=== PATIENT | male | born 1955 | race Caucasian/White ===

== ENCOUNTER 2019-08-03 10:02 | Inpatient (IN) ==
[2019-08-03] MEDS ORDERED: TYLENOL PO PRN (10:42)
[2019-08-03] MEDS ORDERED: ZOFRAN IV PRN (10:42)
[2019-08-03] MEDS: HUMULIN R SUBQ SCH ×3 (11:42→21:14)
[2019-08-03] MEDS ORDERED: COLACE PO PRN (11:45)
[2019-08-03] MEDS ORDERED: ANUSOL-HC CREAM TOP PRN (11:45)
[2019-08-03] MEDS ORDERED: ANUSOL-HC SUPP PR PRN (11:45)
[2019-08-03] MEDS ORDERED: ULTRAM ER PO PRN (11:48)
--- NOTE | 2019-08-03 12:18 | EKG Report ---
Test Performed on : 08/03/2019 11:53:29 AM Test Reason : admit elizabeth grimm Blood Pressure : / mmHG Vent. Rate : 065 BPM Atrial Rate : 065 BPM P-R Int : 380 ms QRS Dur : 096 ms QT Int : 414 ms P-R-T Axes : 071 086 060 degrees QTc Int : 430 ms Sinus rhythm. with 1st degree AV block. Otherwise normal ECG No previous ECGs available Unconfirmed Result
[2019-08-03 12:36] LABS: BASO# 0.12 X1000 (0.0-0.2); BASO% 1.4 % (0.0-0.8); EOS# 0.62 X1000 (0.0-0.7); EOS% 7.3 % (0.0-10.0); HEMOGLOBIN 6.8 g/dL (14.0-18.0); IMM GRAN# 0.02 X1000 (0.0-0.04); IMM GRAN% 0.2 % (0.0-0.5); LYMPH% 32.9 % (20.5-51.1); MCH 24.2 PG (27-31); MCHC 29.6 g/dL (33-37); MCV 81.9 FL (81-99); MONO# 0.97 X1000 (0.11-0.59); MONO% 11.4 % (1.7-9.3); MPV 9.9 FL (7.4-10.4); NEUT# 3.99 X1000 (1.4-6.5); NEUT% 46.8 % (42.2-75.2); PLT 262 X1000 (130-400); RBC 2.81 XMIL (4.7-6.1); RDW 15.6 % (11.5-14.5); WBC 8.52 X1000 (4.8-10.8)
[2019-08-03 12:42] LABS: INR 1.07; PROTIME 14.1 Seconds (11.0-16.0); PTT 28.3 Seconds (22.3-41.8)
[2019-08-03 12:53] LABS: AGAP 13; ALB/GLOB RATIO 0.8; ALBUMIN 3.7 g/dL (3.5-5.0); ALKALINE PHOSPHATASE 95 U/L (32-122); BUN 11 mg/dL (8-22); CALCIUM 9.1 mg/dL (8.8-10.2); CHLORIDE 97 mmol/L (98-107); COSMO 267; ESTIMATED GFR > 60; GLUCOSE 120 mg/dL (70-104); GOT 31 U/L (10-34); GPT 14 U/L (10-44); HEMOGLOBIN A1C 7.8 % (4.8-6.0); MAGNESIUM 1.9 mg/dL (1.5-2.7); POTASSIUM 4.6 mmol/L (3.5-5.1); SODIUM 133 mmol/L (136-145); TCO2 23 mmol/L (25-35); TOTAL BILIRUBIN 0.56 mg/dL (0.20-1.00); TOTAL PROTEIN 8.5 g/dL (6.3-8.3)
[2019-08-03 12:54] LABS: IRON SATURATION 7 %; TIBC 407 ug/dL; TOTAL IRON 30 ug/dL (53-167); UNBOUND IRON 377 ug/dL (112-346)
[2019-08-03] MEDS ORDERED: NEURONTIN PO SCH (13:00)
[2019-08-03 13:26] LABS: FREE T4 1.03 ng/dL (0.93-1.70)
--- NOTE | 2019-08-03 13:27 | HISTORY AND PHYSICAL ---
HISTORY OF PRESENT ILLNESS: This is a 63-year-old who is followed by Dr. Amelia Magaña. I guess he is followed by Dr. Leo Willett as well. Dr. Willett, I think called, and he had significant anemia, symptomatic. States for the last week, he has been short of breath and tired. He works at a machine shop, and had increased dyspnea with exertion. He has noticed a little more swelling in his feet. He has not noticed significant change in abdominal pain or dyspepsia, and no real black, tarry stools, although he says they are dark brown in color. He is taking Celebrex, but no aspirin. He is not on any blood thinner. PAST MEDICAL HISTORY: 1. History of constipation. 2. Gastroesophageal reflux disease. 3. Peripheral neuropathy. 4. History of hemorrhoids. 5. Diabetes mellitus type 2. 6. Hypertension. 7. Chronic pain syndrome. 8. Hyperlipidemia. 9. Osteoarthritis. 10. In February apparently, he was admitted in [place], and they found ulcers, again symptomatic anemia, and I think for a time, he was on proton pump inhibitors. I think he has continued to take some proton pump inhibitors, but he is still on Celebrex as well. 11. Alcohol abuse in the past. 12. Cirrhosis of the liver, but they thought it was more fatty liver changes. Apparently, he had a liver biopsy done at [place] as well that may be in February of this year. 13. He has chronic pain syndrome. He is seen at [facility], gets some pain medicine. I think that is mainly in his back and hips. PAST SURGICAL HISTORY: 1. Left hip replacement. 2. Both shoulders have had surgery, I think that was for rotator cuff. 3. He had 2 cervical disks that I think were fused. SOCIAL HISTORY: He lives with his . 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 He has stopped drinking 12 year. He smokes about 1-1/2 packs a day. He stopped smoking, I believe in 02/2019. FAMILY HISTORY: Diabetes, alcoholism, emphysema. ALLERGIES: Penicillin causes a rash. REVIEW OF SYSTEMS: General: No weight gain or loss. No fever or chills. HEENT: Unremarkable. Respiratory: No increased work of breathing or dyspnea. Cardiovascular: No chest pain or tachy palpitation, but he has had increased dyspnea on exertion as above for the last week. He has noticed increased pedal edema at his ankles. GI/: He does have some epigastric discomfort when he presses on it. He does not notice any pain with meals or after meals. He has not had any hematemesis or melena. Musculoskeletal/Neurologic: No new focal complaints, just general weakness. Endocrinologic/Hematologic: No significant history. PHYSICAL EXAMINATION: GENERAL: Awake and alert, oriented x3. VITAL SIGNS: Temp is 98.9 degrees, pulse 60, respirations 18, blood pressure 156/61. HEENT: Pupils are equal and round. Conjunctiva is pale with pallor. Gingiva with pallor. CVP is less than 6 cm from the right atrium. ABDOMEN: Nontender, nondistended. No organomegaly. No splenomegaly or hepatomegaly. EXTREMITIES: His carotid, radial, and femoral pulses are 2+ and symmetrical. Good capillary refill in his toes and fingertips. SKIN: Warm and dry. LABORATORY DATA: White count was 8520, hematocrit 23, hemoglobin 6.8, platelet count 262,000. ProTime is 14.1, PTT is 28. ASSESSMENT AND PLAN: 1. Suspect gastric ulcer, possible gastritis. Apparently, he has had an upper esophagogastroduodenoscopy. I am not aware if they found esophageal varices. He does not seem to remember. His does not seem to think that they did. We will give him 2 units of packed red blood cells. We will hold the Celebrex, put him on high-dose proton pump inhibitor, and ask Gastroenterology to see. I am guessing we will have to look at his upper GI. He is started on Protonix 40 mg intravenous every 12 hours. 2. Apparently, he has been told that he had some mild cirrhosis, and he seemed to think it was fatty liver. He does have a history of alcohol in the past. We will check his liver enzymes. I am assuming he had a hepatitis profile done. 3. History of constipation. Will give him Colace 100 mg by mouth twice daily. 4. Diabetes mellitus type 2. Will check pattern sugars, put him on a sliding scale. 5. Chronic pain syndrome. Aware. I think that is his neck and lower back and shoulders. At home, he takes gabapentin 200 mg by mouth three times daily. I think we can continue that. He takes oxycodone 7.5. I think he takes that at bedtime. 6. History of hypercholesterolemia. Continue his Pravachol. 7. History of gastroesophageal reflux. Continue proton pump inhibitors. 8. History of hemorrhoids, for which he is using some topical hydrocortisone and lidocaine combination. We will admit to the hospital, and ask Dr. Cordova of Gastroenterology to help us. cc: Ismael Sheffield MD MTDD
[2019-08-03 13:51] LABS: URINE SOURCE CLEAN CATCH
--- NOTE | 2019-08-03 13:51 | Diag Imaging Result Doc PS360 ---
EXAM: CT ABDOMEN/PELVIS W/WO CONTRAS INDICATION: gib; abd pain TECHNIQUE: This exam was performed using automated exposure control, adjustment of mA or kV according to patient size, and/or use of iterative reconstruction technique. COMPARISON: None. FINDINGS: There is trace pleural fluid at the right lung base. There is mild interstitial thickening at both lung bases likely representing mild fibrotic change, perhaps with a component of mild edema. The contour of the liver is somewhat nodular, which is suggestive of cirrhosis. The gallbladder, spleen, pancreas, and adrenal glands are unremarkable. There is a 3 cm cyst at the lower pole of the left kidney, perhaps containing proteinaceous debris. The left renal contour is somewhat lobulated suggesting persistent lobulations or renal cortical scarring. There is no hydronephrosis. The urinary bladder is grossly unremarkable. There is a right inguinal hernia that contains only fat. The appendix is normal. There is fairly advanced descending and sigmoid colonic diverticulosis but no evidence of diverticulitis. The rectosigmoid wall appears mildly thickened focally. This may be due to underdistention. Although unlikely, focal colitis/proctitis or an underlying lesion cannot completely be excluded. There is no evidence of bowel obstruction. The remainder of the GI tract is essentially unremarkable. There is trace fluid along the paracolic gutters bilaterally but mainly on the left. There are small shotty nonspecific periaortic lymph nodes. There is patchy aortoiliac atherosclerotic calcification. There is no evidence of aortic aneurysm. There has been a prior left hip arthroplasty. There are degenerative changes throughout the lumbar spine, most prominent at L5-S1. IMPRESSION: 1.Nodular liver contour suggesting cirrhosis. 2.Fairly advanced diverticulosis coli but no evidence of diverticulitis. 3.Mild rectosigmoid wall thickening that may be due to underdistention. Please see above discussion. 4.Trace nonspecific fluid tracking along the paracolic gutters. 5.Trace right pleural effusion. 6.Mild interstitial thickening at the lung bases suggesting fibrosis +/- edema. 7.Other incidental/nonacute findings detailed above. Electronically signed by Francisco Gresham 08/03/2019 1:48 PM
[2019-08-03 13:54] LABS: BILIRUBIN URINE NEGATIVE (NEGATIVE); BLOOD URINE NEGATIVE (NEGATIVE); COLOR STRAW; GLUCOSE URINE NEGATIVE (NEGATIVE); KETONE URINE NEGATIVE (NEGATIVE); LEUKOCYTES URINE NEGATIVE (NEGATIVE); NITRITE URINE NEGATIVE (NEGATIVE); PH URINE 6.5; PROTEIN URINE NEGATIVE (NEGATIVE); SP GRAVITY URINE 1.006; TURBIDITY URINE CLEAR (CLEAR); UROBILINOGEN URINE NORMAL (NORMAL)
[2019-08-03 13:55] LABS: UR EPITHELIAL CELLS <10 /HPF (<10); URINE BACTERIA NEGATIVE /HPF; URINE RBC <10 /HPF (<10); URINE WBC <10 /HPF (<10)
[2019-08-03] MEDS: PROTONIX 80 MG in NS 80 ML IV SCH ×2 (14:06→23:16)
[2019-08-03] MEDS: NS 1,000 ML IV SCH (14:06)
[2019-08-03 14:10] LABS: UR AMPHETAMINES QUAL NONE DETECTED (NONE DETECT); UR BARBITUATES QUAL NONE DETECTED (NONE DETECT); UR BENZODIAZEPIN QUAL NONE DETECTED (NONE DETECT); UR CANNABINOIDS QUAL NONE DETECTED (NONE DETECT); UR COCAINE QUAL NONE DETECTED (NONE DETECT); UR METHADONE QUAL NONE DETECTED (NONE DETECT); UR OPIATES QUAL NONE DETECTED (NONE DETECT); UR OXYCODONE QUAL PRESUMPTIVE POSITIVE (NONE DETECT); UR PCP QUAL NONE DETECTED (NONE DETECT)
[2019-08-03] MEDS: CARAFATE LIQUID PO SCH ×2 (14:28→21:00)
--- NOTE | 2019-08-03 16:21 | Diag Imaging Result Doc PS360 ---
CHEST-PORTABLE - 08/03/2019 INDICATION: r/o pna COMPARISON: None FINDINGS: There is mild cardiomegaly. Pulmonary vascularity is top normal. No infiltrates or edema. No pneumothorax or pleural effusion. IMPRESSION: Mild cardiomegaly. Electronically signed by Rafa Dye 08/03/2019 4:19 PM
[2019-08-03 19:37] LABS: HEMATOCRIT 23.3 % (42.0-52.0); HEMOGLOBIN 7.1 g/dL (14.0-18.0)
--- NOTE | 2019-08-03 19:42 | GASTROENTEROLOGY CONSULTATION ---
DATE: 08/03/2019 REASON FOR CONSULT: GI bleed and anemia. HISTORY OF PRESENT ILLNESS: Mr. Singh 63-year-old male with history of type 2 diabetes, hypertension, osteoarthritis, GERD, peripheral neuropathy and history of constipation. In February he had been to [facility], where they did a scope and found out that he had ulcers as well as a mass on his liver. Liver biopsy was performed in April and it revealed that he had cirrhosis stage 1. He had been to his doctor for a checkup, he started having shortness of breath, and his feet were swollen up. He was sent to [facility] by his PCP. He has denied any nausea, vomiting but he mentioned that his stools were black and tarry. Patient takes patient takes Nexium for his GERD. For his chronic pain he is on Celecoxib. PAST MEDICAL HISTORY: Constipation, GERD, peripheral neuropathy, history of hemorrhoids, diabetes type 2, hypertension, hyperlipidemia and osteoarthritis, alcohol abuse in the past, tobacco abuse in the past. PAST SURGICAL HISTORY: Left hip replacement, both shoulder surgery and 2 cervical disk fusion. SOCIAL HISTORY: He lives with his , 2 sons, he currently works at [employer]. He used to smoke and he used to drink. Currently he is given up. FAMILY HISTORY: Of no significant GI malignancies. ALLERGIES: He is allergic to penicillin. HOME MEDICATIONS: Tramadol, Celecoxib, Gabapentin, Metformin, Pravastatin, Oxycodone, Hydrocortisone acetate, suppositories, Nexium, Colace, Keflex and Losartan. REVIEW OF SYSTEMS: As per HPI otherwise 12 point review of systems is negative . Temperature 98.9 degrees, pulse 61, respirations 18, blood pressure 156/61, oxygen saturation 100% on room air, patient's weight is 215 pounds, BMI is 30.9 kg per meter square.General: He is alert, oriented x3, good historian and no acute distress. HEENT: Pale conjunctivae, no icterus. PERRL. Neck: Supple. Lungs: Clear to auscultation in the anterior mcbride. Cardiovascular: Regular rate and rhythm. Abdomen: Soft, obese, nontender. Active bowel sounds heard in all 4 quadrants. Extremities: No clubbing, no cyanosis, generalized edema noted bilaterally. Pedal pulses 2+ present. Neurologic: Alert, oriented x3 nonfocal. Cranial nerves 2- 12 grossly intact. LAB: WBC 8.2, RBC 2.81, hemoglobin 6.8, hematocrit 23.0, platelet count 266,000. Sodium 133, potassium 4.6, chloride 97, carbon dioxide 23, anion gap 13, BUN 11, creatinine 1.0, glucose 120, calcium 9.1, magnesium 1.9, iron is 30, TIBC 407, AST 31, ALT 14, total bilirubin 0.56, alkaline phosphate 91. Urinalysis was negative. Toxicology showed urine oxycodone presumptive positive. Abdomen with a CT and pelvis showed nodular liver contour suggesting cirrhosis, diverticulosis coli but no evidence of diverticulitis, mild rectosigmoid wall thickening, trace nonspecific fluid tracking along the paracolic gutters, trace right pleural effusion seen. Mild interstitial thickening at the lung bases other incidents nonacute. IMPRESSION AND PLAN: 1. Upper gastrointestinal bleed. 2. Anemia. 3. Diabetes type 2. 4. Constipation. 5. Gastroesophageal reflux disease . 6. Hemorrhoids. 7. Diverticulosis PLAN: We will do an EGD with enteroscopy tomorrow. Patient is receiving Carafate and Protonix IV @ 10 mls/hr and IV fluids NS @ 50 ml/h. He is bowel regimen Colace and miralax. His H & H is 6.8 and 23.0, he will receive 2 units of blood per PCP. We will continue to monitor patient's CBCs and BMPs and follow the plan of care per PCP. Further plan of care will be based on the EGD findings. This plan was discussed with Dr. Cordova. Thank you for your consult. Please call us for any further questions or concerns. Dictated by GREGG Ambriz for Jeyson Cordova MD Physician Attestation I have seen and examined the patient. I have discussed and reviewed the the note by Gabby ESCOBEDO and agree with findings and plan as documented. In brief, Mr. Héctor Singh is a 63 year old man with probable TORRES/JOANIE, h/o PUD, and OA on Celebrex who presents with acute blood loss anemia with melena. He is on PPI IV BID. Stop carafate. Recommend clear liquid diet. Trending H/H. Transfuse prn for goal hgb 7-8. NPO after MN for diagnostic EGD tomorrow. Please call with questions. MTDD
[2019-08-03] MEDS: PRAVACHOL PO SCH (21:02)
[2019-08-03] MEDS: NEURONTIN PO SCH (21:03)
[2019-08-03] MEDS: PERCOCET-5 PO SCH (21:11)
[2019-08-04] MEDS: PATIENT'S OWN MED TOP SCH ×3 (00:53→20:37)
[2019-08-04 01:42] LABS: HEMATOCRIT 25.4 % (42.0-52.0)
[2019-08-04] MEDS: HUMULIN R SUBQ SCH ×4 (06:04→21:12)
[2019-08-04 06:24] LABS: BASO# 0.07 X1000 (0.0-0.2); BASO% 1.1 % (0.0-0.8); EOS# 0.38 X1000 (0.0-0.7); EOS% 6.2 % (0.0-10.0); HEMATOCRIT 26.5 % (42.0-52.0); HEMOGLOBIN 8.1 g/dL (14.0-18.0); LYMPH# 2.25 X1000 (1.2-3.4); LYMPH% 36.5 % (20.5-51.1); MCH 24.8 PG (27-31); MCHC 30.6 g/dL (33-37); MONO# 0.89 X1000 (0.11-0.59); MONO% 14.4 % (1.7-9.3); MPV 9.4 FL (7.4-10.4); NEUT# 2.58 X1000 (1.4-6.5); NEUT% 41.8 % (42.2-75.2); PLT 210 X1000 (130-400); RBC 3.27 XMIL (4.7-6.1); RDW 15.3 % (11.5-14.5); WBC 6.17 X1000 (4.8-10.8)
[2019-08-04 06:38] LABS: AGAP 5; ALB/GLOB RATIO 0.8; ALBUMIN 3.4 g/dL (3.5-5.0); ALKALINE PHOSPHATASE 87 U/L (32-122); BUN 8 mg/dL (8-22); CALCIUM 9.4 mg/dL (8.8-10.2); CHLORIDE 100 mmol/L (98-107); COSMO 267; CREATININE 1.1 mg/dL (0.7-1.2); ESTIMATED GFR > 60; GLUCOSE 136 mg/dL (70-104); GOT 27 U/L (10-34); GPT 12 U/L (10-44); MAGNESIUM 1.8 mg/dL (1.5-2.7); POTASSIUM 4.4 mmol/L (3.5-5.1); SODIUM 133 mmol/L (136-145); TCO2 28 mmol/L (25-35); TOTAL BILIRUBIN 0.83 mg/dL (0.20-1.00); TOTAL PROTEIN 7.6 g/dL (6.3-8.3)
[2019-08-04] MEDS ORDERED: SODIUM CHLORIDE 0.9% 10 ML ONE (07:04)
[2019-08-04] MEDS: NS 1,000 ML IV SCH (08:46)
[2019-08-04] MEDS: PROTONIX 80 MG in NS 80 ML IV SCH (08:46)
[2019-08-04] MEDS ORDERED: DIPRIVAN 1% ONE (11:07)
[2019-08-04] MEDS ORDERED: XYLOCAINE-MPF 2% ONE (11:07)
--- NOTE | 2019-08-04 11:35 | ENDOSCOPY OPERATIVE NOTE ---
[facility] ENDOSCOPY OPERATIVE NOTE , PATIENT: Héctor Singh ADMISSION DATE: 08/04/2019 [facility]#: [id number] : 1955 [id number] EGD WITH PUSH ENTEROSCOPY PROCEDURE REPORT PROCEDURE DATE: 08/04/2019 SURGEON: Jeyson Cordova MD STATUS: inpatient MORTGAGE BANKER: PREOPERATIVE DIAGNOSIS: The patient is a 63 yr old male here for an EGD due to melena and anemia sec ondary to chronic blood loss. PROCEDURE PERFORMED: EGD with push enteroscopy, diagnostic MEDICATIONS: Per Anesthesia TOPICAL ANESTHETIC: none CONSENT: The patient understands the risks and benefits of the procedure and understands that these r isks include, but are not limited to: sedation, allergic reaction, infection, perforation and/or bleeding. Alternative means of evaluation and treatment include, among others: physical exam, x-rays, and/or surgical intervention. The patient elects to proceed with this endoscopic procedure. HISORY AND PHYSICAL: 08/04/2019 DESCRIPTION OF PROCEDURE: During intra-op preparation period all mechanical and medical equipment was checked for proper function. Hand hygiene and appropriate measures for infection prevention was taken. After the risks, benefits and alternatives of the procedure were thoroughly explained, Informed consent was verified, confirmed and timeout was successfully executed by the treatment team. The patient was anesthetized with topical anesthesia and the CU85-[id number] ([id number]) endoscope was introduced through the mouth and advanced to the 120cm from incisors. Retrof lexion was performed in the stomach and revealed a hiatal hernia. The gastroscope was then slowly withdrawn and removed. ESOPHAGUS: Two columns of grade I-II esophageal varices found in the distal esophagus. No red susan s igns or stigmata of recent bleeding. STOMACH: The mucosa of the stomach appeared normal. No gastric varices DUODENUM: The duodenum was normal. JEJUNUM / ILEUM: Normal jejunum. SPECIMENS REMOVED: No ADVERSE EVENTS: There were no complications. POSTOPERATIVE DIAGNOSIS: 1. Two columns of grade I-II esophageal varices found in the distal eso phagus. No red susan signs or stigmata of recent bleeding 2. The mucosa of the stomach appeared normal 3. The duodenum was normal 4. Normal jejunum 5. Small hiatal hernia RECOMMENDATIONS: Clear liquid diet Prep with 4L of golytely for diagnostic colonoscopy tomorrow Patient will need to be started on nadolol 20mg PO once daily upon discharge for primary prophylaxis of esophageal varices NPO after MN for diagnostic colonoscopy with Dr. Burton REPEAT EXAM: Jeyson Cordova MD eSigned: Jeyson Cordova MD 08/04/2019 11:34 AM cc: PATIENT NAME: Héctor Singh MR#: [id number]
[2019-08-04] MEDS ORDERED: GOLYTELY PO ONE ×2 (11:53→18:00)
[2019-08-04] MEDS: COZAAR PO SCH (12:09)
[2019-08-04] MEDS: NEURONTIN PO SCH ×2 (12:09→18:03)
[2019-08-04] MEDS: MIRALAX PO SCH (12:10)
[2019-08-04] MEDS: PROTONIX IV SCH (12:11)
[2019-08-04 12:40] LABS: HEMATOCRIT 26.9 % (42.0-52.0); HEMOGLOBIN 8.5 g/dL (14.0-18.0)
--- NOTE | 2019-08-04 12:40 | PROGRESS NOTE ---
DATE: 08/04/2019 SUBJECTIVE: Mr. Singh is feeling better. He was a little upset that he was told he had cirrhosis of the liver and I plan on doing a colonoscopy tomorrow. He has not had any sign of bleeding or red blood from the rectum or dark black stools. OBJECTIVE: Vital signs: Temperature 98.1 degrees, pulse 74, respirations 16, blood pressure 158/60. HEENT: Pupils are equal round. Lungs: Clear in all lung mcbride. Cardiovascular: Regular rate without murmur or S3. Abdomen: Soft. Skin: Warm and dry. Urine output is 3300 mL. DIAGNOSTIC DATA: 1. EGD revealed 2 columns of grade 1 to 2 esophageal varices found in the distal esophagus. No red susan signs or stigmata of recent bleeding. Mucosa of the stomach appeared normal. Duodenum was normal. Normal jejunum. Small hiatal hernia, so started on nadolol 20 mg p.o. once a day and it looks like he has fatty liver changes as well. Encourage weight reduction. Of course, he has been off alcohol I think since February of this year and continue to encourage abstinence from alcohol. 2. Anemia, blood loss anemia. Received 2 units packed red blood cells. We have him on some iron. 3. Diabetes mellitus type 2. Sugars are controlled. 4. Constipation. 5. History of hemorrhoids. 6. Diverticulosis. 7. Chronic pain syndrome for which he is on oxycodone. REVIEW OF ORDERS: The patient getting Neurontin for neuropathy and he is on Protonix 40 mg IV q.12. He has MiraLAX 17 g a day and we are going to prep him for a colonoscopy tomorrow. cc: Ismael Sheffield MD
[2019-08-04 18:39] LABS: HEMATOCRIT 25.2 % (42.0-52.0); HEMOGLOBIN 7.7 g/dL (14.0-18.0)
[2019-08-04] MEDS: PRAVACHOL PO SCH (20:36)
[2019-08-04] MEDS: PERCOCET-5 PO SCH (20:36)
[2019-08-05] MEDS: PROTONIX IV SCH ×3 (00:08→23:52)
[2019-08-05] MEDS: NEURONTIN PO SCH ×4 (00:08→23:53)
[2019-08-05 00:51] LABS: HEMATOCRIT 27.5 % (42.0-52.0); HEMOGLOBIN 8.5 g/dL (14.0-18.0)
[2019-08-05 06:14] LABS: BASO# 0.04 X1000 (0.0-0.2); BASO% 0.7 % (0.0-0.8); EOS# 0.49 X1000 (0.0-0.7); EOS% 8.1 % (0.0-10.0); HEMATOCRIT 24.5 % (42.0-52.0); HEMOGLOBIN 7.7 g/dL (14.0-18.0); LYMPH# 2.38 X1000 (1.2-3.4); LYMPH% 39.2 % (20.5-51.1); MCH 25.4 PG (27-31); MCHC 31.4 g/dL (33-37); MCV 80.9 FL (81-99); MONO# 0.87 X1000 (0.11-0.59); MONO% 14.3 % (1.7-9.3); MPV 9.4 FL (7.4-10.4); NEUT# 2.29 X1000 (1.4-6.5); NEUT% 37.7 % (42.2-75.2); PLT 204 X1000 (130-400); RBC 3.03 XMIL (4.7-6.1); RDW 15.7 % (11.5-14.5); WBC 6.07 X1000 (4.8-10.8)
[2019-08-05] MEDS: HUMULIN R SUBQ SCH ×4 (06:17→20:45)
[2019-08-05 06:25] LABS: AGAP 14; ALB/GLOB RATIO 0.8; ALBUMIN 3.1 g/dL (3.5-5.0); ALKALINE PHOSPHATASE 80 U/L (32-122); BUN 6 mg/dL (8-22); CALCIUM 8.4 mg/dL (8.8-10.2); CHLORIDE 99 mmol/L (98-107); COSMO 269; ESTIMATED GFR > 60; GLUCOSE 123 mg/dL (70-104); GOT 30 U/L (10-34); GPT 12 U/L (10-44); MAGNESIUM 1.5 mg/dL (1.5-2.7); POTASSIUM 3.9 mmol/L (3.5-5.1); SODIUM 135 mmol/L (136-145); TCO2 22 mmol/L (25-35); TOTAL BILIRUBIN 0.49 mg/dL (0.20-1.00); TOTAL PROTEIN 7.1 g/dL (6.3-8.3)
[2019-08-05] MEDS: NS 1,000 ML IV SCH (06:28)
[2019-08-05] MEDS ORDERED: SODIUM CHLORIDE 0.9% 10 ML ONE ×2 (07:22→10:47)
[2019-08-05] MEDS ORDERED: DIPRIVAN 1% ONE (09:03)
[2019-08-05] MEDS ORDERED: FENTANYL ONE (09:03)
[2019-08-05] MEDS ORDERED: XYLOCAINE-MPF 2% ONE (09:03)
--- NOTE | 2019-08-05 10:02 | ENDOSCOPY OPERATIVE NOTE ---
[facility] ENDOSCOPY OPERATIVE NOTE , PATIENT: Héctor Singh ADM DATE: MR #: [id number] : 1955 COLONOSCOPY PROCEDURE REPORT PROCEDURE DATE: 08/05/2019 SURGEON: Dawit Burton MD STATUS: inpatient CAKE WASHER: Humberto Hernandez and Salma Delaney PREOPERATIVE DIAGNOSIS: The patient is a 63 yr old male here for a colonoscopy due to Anemia, Alcohl ic liver cirrhosis quit in 7-[address] Ely at [facility], EGD showed Esoohageal Varices Grade I-II per Dr crews. PROCEDURE PERFORMED: Colonoscopy, diagnostic MEDICATIONS: Per Anesthesia PREP TYPE: GoLytely
[2019-08-05] MEDS: MIRALAX PO SCH (10:27)
[2019-08-05] MEDS: PATIENT'S OWN MED TOP SCH ×2 (10:27→20:51)
[2019-08-05] MEDS: COZAAR PO SCH (11:53)
[2019-08-05] MEDS ORDERED: ANUSOL-HC CREAM TOP PRN (13:51)
--- NOTE | 2019-08-05 17:02 | PROGRESS NOTE ---
DATE: 08/05/2019 SUBJECTIVE: Mr. Singh had his colonoscopy today. He feels a little better today. OBJECTIVE: Vital signs: Temp 98.6 degrees, pulse 72, respirations 16, blood pressure 151/71. Lungs: Clear in all lung mcbride. Cardiovascular: Regular rhythm and rate without murmur or S3. CVP less than 6 cm. No pedal edema. : He has had good urine output. ASSESSMENT AND PLAN: Colonoscopy. There were no complications. Moderate nonbleeding diverticulosis was noted in the sigmoid colon, descending colon, transverse colon, hepatic flexure. He had medium-sized grade 2 hemorrhoids, 2 descending colon polyps, and no bleeding, and no AV malformations noted. His EGD revealed 2 columns of grade 1-2 esophageal varices found in the distal esophagus. No red Chandan signs or stigmata of recent bleeding. Mucosa of the stomach appeared normal. Duodenum was normal. Normal jejunum. A small hiatal hernia. I guess they suspect the bleeding may have been coming from the diverticulum. His hematocrit today was 24, hemoglobin 7.7, MCV was 80. Continue current proton pump inhibitors. He will need to follow up in 90 days and see if we get the polyps removed. In looking over his orders, I do not see any change. Hopefully he can go home tomorrow and will need to put him on iron tablet as well. cc: Ismael Sheffield MD
[2019-08-05] MEDS: PERCOCET-5 PO SCH (20:39)
[2019-08-05] MEDS: PRAVACHOL PO SCH (20:40)
[2019-08-05] MEDS: ICAR-C PO SCH (20:40)
[2019-08-05] MEDS ORDERED: METAMUCIL POWDER PACKET PO SCH (21:00)
[2019-08-06] MEDS: NS 1,000 ML IV SCH (02:48)
[2019-08-06 06:03] LABS: BASO# 0.06 X1000 (0.0-0.2); EOS# 0.47 X1000 (0.0-0.7); EOS% 7.5 % (0.0-10.0); HEMATOCRIT 26.6 % (42.0-52.0); HEMOGLOBIN 8.2 g/dL (14.0-18.0); LYMPH# 2.24 X1000 (1.2-3.4); LYMPH% 35.8 % (20.5-51.1); MCH 25.2 PG (27-31); MCHC 30.8 g/dL (33-37); MCV 81.6 FL (81-99); MONO# 0.74 X1000 (0.11-0.59); MONO% 11.8 % (1.7-9.3); MPV 9.4 FL (7.4-10.4); NEUT# 2.75 X1000 (1.4-6.5); NEUT% 43.9 % (42.2-75.2); PLT 195 X1000 (130-400); RBC 3.26 XMIL (4.7-6.1); RDW 16.1 % (11.5-14.5); WBC 6.26 X1000 (4.8-10.8)
[2019-08-06 06:32] LABS: AGAP 13; ALB/GLOB RATIO 0.9; ALBUMIN 3.5 g/dL (3.5-5.0); ALKALINE PHOSPHATASE 81 U/L (32-122); BUN 4 mg/dL (8-22); CALCIUM 9.3 mg/dL (8.8-10.2); CHLORIDE 105 mmol/L (98-107); COSMO 278; ESTIMATED GFR > 60; GLUCOSE 126 mg/dL (70-104); GOT 29 U/L (10-34); GPT 13 U/L (10-44); MAGNESIUM 1.8 mg/dL (1.5-2.7); POTASSIUM 4.1 mmol/L (3.5-5.1); SODIUM 140 mmol/L (136-145); TCO2 22 mmol/L (25-35); TOTAL BILIRUBIN 0.49 mg/dL (0.20-1.00); TOTAL PROTEIN 7.2 g/dL (6.3-8.3)
[2019-08-06] MEDS: HUMULIN R SUBQ SCH (06:34)
[2019-08-06] MEDS ORDERED: SODIUM CHLORIDE 0.9% 0 ML ONE ×2 (06:58→10:47)
[2019-08-06 07:51] VITALS: BP 172/57
[2019-08-06] MEDS ORDERED: PNEUMOVAX 23 IM ONE (08:24)
[2019-08-06] MEDS ORDERED: FLU VACCINE IM ONE (08:24)
[2019-08-06] MEDS: COZAAR PO SCH (10:16)
[2019-08-06] MEDS: MIRALAX PO SCH (10:16)
[2019-08-06] MEDS: ICAR-C PO SCH (10:16)
[2019-08-06] MEDS: NEURONTIN PO SCH (10:16)
[2019-08-06] MEDS: PATIENT'S OWN MED TOP SCH (10:17)
--- NOTE | 2019-08-06 11:13 | DISCHARGE SUMMARY ---
ADMISSION DATE: 08/03/2019 DISCHARGE DATE: 08/06/2019 HISTORY OF PRESENT ILLNESS: He is followed by Dr. Amelia Magaña. A 63-year-old. He also was seen by Dr. Leo Willett. Dr. Willett called. He had significant anemia, symptomatic. He was at work and noted being very short of breath and tired, marked dyspnea on exertion. He works at a machine shop. Denied any real chest pain. Noticed he had a little more swelling in his feet. He had no significant abdominal pain or dyspepsia, but he has had some black dark brown stools. He was on Celebrex. PAST MEDICAL HISTORY: 1. History of constipation. 2. Gastroesophageal reflux disease. 3. Peripheral neuropathy. 4. History of hemorrhoids. 5. Diabetes mellitus type 2. 6. Hypertension. 7. Chronic pain syndrome. 8. Hyperlipidemia. 9. Osteoarthritis. 10. Apparently admitted to [place], they found ulcers I think in February of this year. At that time, he was put on a proton pump inhibitor. I think they had done a biopsy of his liver and confirmed he had some cirrhosis. He seemed to think he was told it was not real severe. 11. Alcohol use in the past. He quit in February. 12. Cirrhosis of the liver and apparently some fatty liver changes. He had a biopsy at [place], I think in February of this year. 13. Chronic pain syndrome for which he is seen in the Pain Clinic. PAST SURGICAL HISTORY: 1. Left hip replacement. 2. Both shoulders have had surgery. 3. Two cervical disk had been fused. ADMISSION DIAGNOSES: 1. Suspect gastric ulcer. 2. Possible gastritis. 3. Possible esophageal varices. HOSPITAL COURSE: He was admitted to the hospital, underwent EGD and did fine. Has stage 1 to 2 esophageal varices, but the mucosa of the stomach and the duodenum and the jejunum was unremarkable. He did have a small hiatal hernia. Had 2 columns of grade 1 to 2 esophageal varices found in the distal esophagus. No red Chandan sign or stigmata of recent bleeding. He then underwent colonoscopy. He had moderate to nonmoderate, nonbleeding diverticulosis noted in the sigmoid colon, descending colon, transverse colon and hepatic flexure. Medium size internal grade 2 hemorrhoids. He had 2 descending colon polyps which were resected. Nonbleeding AVM noted. The patient was given 2 units of packed red blood cells on arrival. Hematocrit remained stable. Did not see any sign of further active bleeding and on presentation, hemoglobin was 6.8, hematocrit 23. The day of discharge, hematocrit 26, hemoglobin 8.2. We will discharge. He needs a new glucometer and some strips in which I gave that for him, and Colace 100 mg p.o. b.i.d., Neurontin 200 mg t.i.d., Anusol HC 25 mg per rectum b.i.d. as needed for hemorrhoids. Icar-C 1 twice a day, Cozaar 50 mg p.o. daily, Percocet 1.5 at bedtime, Protonix 40 mg to take p.o. just once a day, MiraLAX 17 g p.o. daily, Pravachol 10 mg p.o. at bedtime and then tramadol 300 mg p.o. daily p.r.n. pain. FOLLOWUP: He will follow up. He is supposed to see Dr. Burton I think in 3 months and he will follow up with his primary care as well. Encouraged low carbohydrate diet to help with the fatty liver change and continue cessation of alcohol. cc: Ismael Sheffield MD
--- NOTE | 2019-08-06 14:14 | GASTROENTEROLOGY PROGRESS NOTE ---
DATE: 08/06/2019 SUBJECTIVE: Mr. Singh 63 year old male resting in bed with family at the bedside. Denied any nausea, vomiting, abdominal pain, bowel movements or noticing any blood in the stools. OBJECTIVE: Vital Signs: Temperature 98.4 degrees, pulse 74, respirations 18, blood pressure 172/57, and oxygen saturation 95%. He is on room air. The patient's weight is 219 pounds. BMI is 31.4 kg/m2. General: He is alert and oriented x3 in no acute distress. HEENT: Pale conjunctivae. No icterus. PERRLA. Neck: Supple. Lungs: Clear to auscultation in the anterior mcbride. Cardiovascular: Regular rate and rhythm. Abdomen: Soft, nontender. Mildly distended. Active bowel sounds heard in all 4 quadrants. Extremities: No clubbing. No cyanosis. Generalized edema noted bilaterally. Pedal pulses 2+ present. Neurological: Alert and oriented x3. LABORATORY DATA: WBC 6.26, RBC 3.26, hemoglobin 8.2, hematocrit 26.6, and platelet count 195,000. Sodium 140, potassium 4.1, chloride 105, carbon dioxide 22, anion gap 13, BUN 4, creatinine 1.0, total bilirubin 0.49, AST 29, ALT 13, and alkaline phosphate 81. IMPRESSION AND PLAN: 1. Upper GI bleed. 2. Anemia. 3. Type 2 diabetes. 4. Constipation. 5. Gastroesophageal reflux disease. 6. Hemorrhoids. 7. Diverticulosis. PLAN: An EGD was done with enteroscopy on 08/04. The findings were esophageal varices in the distal esophagus. Stomach was normal and no gastric masses. Duodenum was normal. Jejunum/ileum was normal. No biopsies were done. The colonoscopy was done on 08/05, and the findings were non bleeeding diverticulosis in the sigmoid colon, descending colon, transverse and hepatic flexure, medium-sized grade 2 hemorrhoids and two descending colon polyps not resected. Nonbleeding AVM noted. The patient has been started on iron tablets. For bowel regimen he is on Metamucil 1 pack daily, MiraLAX 17 g, Colace 100 mg. Patient is also receiving hydrocortisone suppository and hydrocortisone topical ointments for his hemorrhoids. The patient has been asked to follow up as an outpatient for repeat colonoscopy in 3 months for the resection of the colon polyps. The patient has been advised to have a high- fiber diet. Avoid foods with nut, seeds and corn. The patient and family acknowledges understanding of the instructions. We will continue to monitor his CBC, BMP and also follow the plan of care per PCP. Patient is getting discharged and will follow us up in our clinic in 3 months.This plan was discussed with Dr. Cordova. Please call us for any further questions or concerns. Dictated by GREGG Ambriz for Jeyson Cordova MD Physician Attestation I have seen and examined the patient. I have discussed and reviewed the the note by Gabby ESCOBEDO and agree with findings and plan as documented. JENNIFER
== END 2019-08-06 11:29 | disposition home or self-care (01) | DRG 378 ==
LOC: DIRADM 10:02 → SUATTDRO 10:02 → 2N 10:53
PROVIDERS: ATTEND Emergency Medicine